=== PATIENT | female | born 1990 | race Caucasian/White ===

== ENCOUNTER 2023-10-19 14:20 | Emergency (ER) | payer MEDICAID ==
[~2023-10-19] VITALS: Ht 154.9 cm; Wt 49.0 kg
[2023-10-19 14:56] VITALS: BP 117/66; PULSE 90; RESP 14; TEMP 98.4; O2SAT 96
[2023-10-19 15:24] LABS: BASOPHILS # (AUTO) 0.1 K/uL (0.00-0.22); EOSINOPHILS # (AUTO) 0.2 K/uL (0-0.4); EOSINOPHILS % (AUTO) 2.9 % (0.0-4.0); HEMATOCRIT 40.3 % (36-48); HEMOGLOBIN 13.7 g/dL (12.0-16.0); LYMPHOCYTES # (AUTO) 2.6 K/uL (2.5-16.5); LYMPHOCYTES % (AUTO) 36.8 % (20.5-51.1); MEAN CORPUSCULAR HEMOGLOBIN 29 pg (27-31); MEAN CORPUSCULAR HGB CONC 34 g/dL (33-37); MEAN CORPUSCULAR VOLUME 85.5 fL (80-94); MONOCYTES # (AUTO) 0.5 K/uL (0.8-1.0); MONOCYTES % (AUTO) 7.8 % (1.7-9.3); NEUTROPHILS # (AUTO) 3.6 K/uL (1.8-7.7); NEUTROPHILS % (AUTO) 51.5 % (42.2-75.2); PLATELET COUNT (AUTO) 256 K/uL (140-450); RED BLOOD CELL COUNT(AUTO) 4.71 MIL/uL (4.20-5.40); WHITE BLOOD COUNT (AUTO) 6.9 K/uL (4.8-10.8)
[2023-10-19 15:40] LABS: ANION GAP 12.2 (8-16); CALCIUM 8.9 mg/dL (8.5-10.1); CARBON DIOXIDE 26.9 mmol/L (21-32); CREATININE 0.7 mg/dL (0.6-1.3); POTASSIUM 4.1 mmol/L (3.5-5.1)
[2023-10-19 15:55] LABS: THYROID STIMULATING HORMONE 4.75 uIU/mL (0.34-3.74)
== END 2023-10-19 16:15 | disposition home or self-care (01) ==
LOC: MED 14:20
DX: R42 Dizziness and giddiness (principal); R51.9 Headache, unspecified; G47.00 Insomnia, unspecified
CPT/HCPCS: 36415; 71045; 80048; 84443; 84484; 84703; 85025; 93005; 99285